=== PATIENT | male | born 1945 | race Caucasian/White ===

== ENCOUNTER 2019-07-21 12:43 | Emergency (ER) | payer OTHER ==
[~2019-07-21] VITALS: Ht 177.8 cm; Wt 117.9 kg
[2019-07-21 12:43] VITALS: Ht 177.8 cm; Wt 117.9 kg
[2019-07-21 13:34] VITALS: BP 110/43
== END 2019-07-21 14:46 | disposition home or self-care (01) ==
LOC: EDBD 12:43 → ED 12:43
DX: M54.42 Lumbago with sciatica, left side (principal); E11.9 Type 2 diabetes mellitus without complications; S90.822A Blister (nonthermal), left foot, initial encounter; X58.XXXA Exposure to other specified factors, initial encounter; Y93.89 Activity, other specified; Y92.89 Other specified places as the place of occurrence of the external cause; Y99.8 Other external cause status
CPT/HCPCS: J2270; Q0162